=== PATIENT | female | born 1985 | race African-American/Black ===

== ENCOUNTER 2022-07-13 09:45 | Outpatient (CLI) | payer BC ==
[~2022-07-13 09:45] MED LIST: Magnevist 469MG/ML 20 ML VIAL ONE
== END 2022-07-13 09:46 | disposition home or self-care (01) ==
LOC: CSHMRI 09:45
PROVIDERS: ATTEND Student in an Organized Health Care Education/Training Program
DX: R94.7 Abnormal results of other endocrine function studies (principal); R90.82 White matter disease, unspecified
CPT/HCPCS: 70553; A9579

== ENCOUNTER 2022-11-19 19:35 | Emergency (ER) | payer BC ==
[2022-11-19] MEDS ORDERED: Morphine 4 MG/ML VIAL ONE ×2 (20:49→22:18)
[2022-11-19] MEDS ORDERED: Ondansetron PF 4 MG/2 ML Vial ONE ×2 (20:50→22:18)
[2022-11-19 21:17] LABS: #Eosinphils 0.1 10x3/uL (0.0-0.5); #Monocytes 0.6 10x3/uL (0.0-1.1); #Neutrophils 5.1 10x3/uL (1.5-8.4); %Basophils 0.4 % (0.0-2.0); %Eosinophils 1.4 % (0.0-6.0); %Lymphocytes 25.5 % (18.0-47.0); %Monocytes 7.1 % (0.0-10.0); %Neutrophils 65.3 % (40.0-75.0); Hemoglobin 12.1 g/dL (12.0-15.5); Mean Corpuscular HGB CONC 33.9 g/dL (32.0-36.0); Mean Corpuscular Hemoglobin 26.6 pg (27.0-33.0); Mean Corpuscular Volume 78.5 fl (81.6-98.3); Platelet Count 317 10x3/uL (150-450); RBC Distribution Width 14.2 % (11.5-14.5); Red Blood Cell (RBC) Count 4.55 10x6/uL (3.90-5.03); White Blood Cell (WBC) Count 7.7 10x3/uL (3.5-10.5)
[2022-11-19 21:22] LABS: ALT (SGPT) 13 U/L (8-55); AST (SGOT) 19 U/L (5-34); Albumin 4.2 g/dL (3.5-5.0); Alkaline Phosphatase 54 U/L (40-110); Anion Gap 12 mmol/L (10-20); BUN (Urea Nitrogen) 9 mg/dL (7.0-18.7); Bilirubin, Total 0.4 mg/dL (0.2-1.2); Calc. Creatinine Clearance 0 mL/min (70-130); Calcium 10.1 mg/dL (7.8-10.44); Carbon Dioxide 24 mmol/L (22-29); Chloride 105 mmol/L (98-107); Estimated GFR 103; Globulin 3.9 g/dL (2.4-3.5); Glucose 100 mg/dL (70-105); Potassium 3.6 mmol/L (3.5-5.1); Protein, Total 8.1 g/dL (6.0-8.3); Sodium 137 mmol/L (136-145)
[2022-11-19 21:23] LABS: Bilirubin Neg (Negative); Blood, Urine 250 (Negative); Glucose, Urine (Dipstick) Normal (Negative); Ketone, Urine Negative (Negative); Leukocyte 500 (Negative); Nitrite Negative (Negative); Protein, Urine (Dipstick) 100 mg/dl (Neg-Trace); Specific Gravity, Urine 1.015 (1.005-1.030); Urobilinogen Normal mg/dL (Less than 2); pH, Urine 6.5 (5.0-9.0)
[2022-11-19 21:25] LABS: Clarity Cloudy (Clear)
[2022-11-19 21:27] LABS: Bacteria/HPF 4+ HPF (None Seen); RBC/HPF Greater than 50 HPF (0-3)
[2022-11-19] MEDS ORDERED: Lorazepam 2 MG/ML VIAL ONE (22:19)
[2022-11-20] MEDS ORDERED: Misoprostol 200 MCG TAB ONE (00:57)
== END 2022-11-20 01:53 | disposition home or self-care (01) ==
LOC: CSHERS 19:35
DX: O03.9 Complete or unspecified spontaneous abortion without complication (principal); D25.9 Leiomyoma of uterus, unspecified; D25.2 Subserosal leiomyoma of uterus
CPT/HCPCS: 76856; 80053; 81003; 81015; 84702; 85025; 86900; 86901; 88305; 96374; 96375; 96376; J2060; J2270; J2405